=== PATIENT | female | born 1990 | race Hispanic/Latino ===

== ENCOUNTER 2024-08-02 22:00 | Emergency (ER) | payer BC ==
[~2024-08-02] VITALS: Ht 165.1 cm; Wt 86.2 kg
[2024-08-02] MEDS: 0.9%NACL 1000ML 1,000 ML IV ONE (22:24)
[2024-08-02] MEDS: morPHINE 4 MG SYG IVP ONE (22:24)
[2024-08-02] MEDS: ondanSETRON 4MG INJ IVP ONE (22:24)
--- NOTE | 2024-08-02 22:29 | ERN ---
ED Note History of Present Illness Stated Complaint: NAUSEA/VOMITING Chief Complaint: Nausea,Vomiting,Diarrhea Time Seen by MD: 22:08 Time Seen by Midlevel: 22:08 Dictation: The patient is a 33-year-old female with a history of cholecystectomy who pres ents to the emergency department with complaints of a two episodes of nonbloody vomiting, periumbilical abdominal pain onset 1 hour prior to arrival. Patient denies any diarrhea, fevers. Reports daughter with similar symptoms at home. Allergies: Coded Allergies: No Known Drug Allergies (Unverified Allergy, Unknown, 08/02/24) Home Meds Active Scripts Metoclopramide HCl (Reglan 10 mg Tab) 10 Mg Tablet, 1 TAB PO QID PRN for VOMITING for 15 Days, #120 TAB 0 Refills Prov:KENZIE HEAD [facility] 08/03/24 Ciprofloxacin HCl (Cipro) 500 Mg Tablet, 1 TAB PO BID for 10 Days, #20 TAB 0 Refills Prov:KENZIE HEAD [facility] 08/03/24 Metronidazole (Metronidazole) 500 Mg Tablet, 1 TAB PO TID for 10 Days, #30 TAB 0 Refills Prov:KENZIE HEAD [facility] 08/03/24 Past Medical History Past Medical History: No Pertinent History Surgical History: None RN Note Reviewed/Agreed w/PFSH: Yes Review of System Dictation Constitutional: Negative for fever,chills, and weight loss Eyes: Negative for injury, pain,redness, and discharge ENT: Negative for injury,pain or swelling Cardiovascular: Negative for chest pain, palpitations, and edema Respiratory: Negative for shortness of breath, cough, and wheezing, Abdomen/GI: Negative for diarrhea, and constipation. Positive for abdominal pain, nausea, vomiting Back: Negative for injury and pain : Negative for injury, bleeding and discharge MS/Extremity: Negative for injury and deformity Skin: Negative for rash, and discoloration Neuro: Negative for headache, weakness, numbness, tingling, and seizure Psych: Negative for suicide ideation, homicidal ideation, and hallucinations Initial Vital Sign VS Vital Signs Date Time Temp Pulse Resp B/P (MAP) Pulse Ox O2 Delivery O2 Flow Rate FiO2 08/02/24 22:08 98.2 89 20 142/83 99 Room Air 0 08/02/24 22:16 21 Physical Exam Dictation Vital Signs reviewed General Appearance: Alert, oriented x 3, no acute distress, well developed, nourished. Head and Face: non-traumatic. Eyes: PERRL, pink conjunctivas, eyelid no trauma, anterior chamber with arcus senilis. Ears: Pinnas intact and no signs of trauma or erythema ear canals clear and no discharge TM no erythema Nose: No discharge, no bleeding. Oropharynx: Mouth normal, tongue pink. pharynx clear,no erythema, tonsils no exudates, no abscesses noted, mucous membrane moist Neck: Supple, non-tender, no thyromegaly, no masses, no JVD, no bruits Breast:Deferred Chest:No tenderness, no crepitus, no paradoxical movement, no retractions Lungs:Clear, well-ventilated, symmetric, no rales, no wheezing, no rhonchi, no stridor, good breath sounds bilaterally Heart: Regular rate, regular rhythm, no murmur, no gallops Vascular: no peripheral edema, Abdomen: Soft, positive bowel sounds, nondistended, no guarding, Tenderness to left lower, right lower quadrant, no rebound, no masses no hepatomegaly, no splenomegaly, no Grossman's sign, no hernias. Rectal: Deferred Genital: Deferred Neurological: Normal speech, motor function intact, sensory function intact Musculoskeletal: Neck nontender, full range of motion, back nontender, full range of motion, Extremities: nontender, full range of motion Skin: Color pink, dry, no turgor, no rash, no lacerations, no abrasions, no contusions. Lymphatic: Deferred Results (Laboratory/Radiology) Laboratory/Radiology Laboratory Tests Test 08/02/24 22:41 08/03/24 01:27 08/03/24 01:36 White Blood Count 11.7 K/uL (4.8-10.8) H Red Blood Count 4.21 MIL/uL (4.00-5.50) Hemoglobin 10.7 g/dL (12.0-16.0) L Hematocrit 32.6 % (36-48) L Mean Corpuscular Volume 77.4 fL (79-99) L Mean Corpuscular Hemoglobin 25.4 pg (27.0-33.0) L Mean Corpuscular Hemoglobin Concent 32.8 g/dL (32.0-36.0) Red Cell Distribution Width 14.5 % (11.0-15.5) Platelet Count 199 K/uL (130-400) Mean Platelet Volume 11.4 fL (7.5-10.5) H Immature Granulocyte % (Auto) 0.4 % (0-1) Neutrophils (%) (Auto) 82.0 % (40.0-77.0) H Lymphocytes (%) (Auto) 10.4 % (21.0-51.0) L Monocytes (%) (Auto) 6.4 % (3.0-13.0) Eosinophils (%) (Auto) 0.5 % (0.0-8.0) Basophils (%) (Auto) 0.3 % (0.0-5.0) Neutrophils # (Auto) 9.6 K/uL (1.8-7.7) H Lymphocytes # (Auto) 1.2 K/uL (1.0-4.8) Monocytes # (Auto) 0.8 K/uL (0.1-1.0) Eosinophils # (Auto) 0.06 K/uL (0.00-0.70) Basophils # (Auto) 0.03 K/uL (0.00-0.20) Absolute Immature Granulocyte (auto 0.05 K/uL (0-1) Nucleated Red Blood Cells 0.0 % (0.0-0.19) Sodium Level 137 mmol/L (136-145) Potassium Level 2.8 mmol/L (3.5-5.1) *L 3.3 mmol/L (3.5-5.1) L Chloride Level 104 mmol/L (101-111) Carbon Dioxide Level 27 mmol/L (21-32) Blood Urea Nitrogen 12 mg/dL (7-18) Creatinine 0.5 mg/dL (0.5-1.0) Glomerular Filtration Rate Calc 125 mL/min (>90) Random Glucose 119 mg/dL (70-105) H Total Calcium 7.4 mg/dL (8.5-10.1) L Magnesium Level 1.40 mg/dL (1.80-2.40) L Total Bilirubin 1.0 mg/dL (0.2-1.0) Direct Bilirubin 0.2 mg/dL (0.0-0.3) Aspartate Amino Transf (AST/SGOT) 15 U/L (10-37) Alanine Aminotransferase (ALT/SGPT) 24 U/L (12-78) Alkaline Phosphatase 62 U/L (50-136) Total Protein 6.1 g/dL (6.0-8.3) Albumin 2.8 g/dL (3.5-5.0) L Lipase 28 U/L (16-77) Serum Test, Qualitative NEGATIVE (NEGATIVE) Urine Color LIGHT-YELLOW (YELLOW) Urine Appearance CLEAR (CLEAR) Urine pH 6.0 (5.0-8.0) Urine Specific [place] OVER (1.001-1.031) Urine Protein NEGATIVE mg/dL (NEGATIVE) Urine Glucose (UA) NEGATIVE mg/dL (NEGATIVE) Urine Ketones 40 mg/dL (NEGATIVE) H Urine Occult Blood LARGE (NEGATIVE) H Urine Nitrate NEGATIVE (NEGATIVE) Urine Bilirubin NEGATIVE mg/dL (NEGATIVE) Urine Urobilinogen 0.2 mg/dL (0.2-1.0) Urine Leukocyte Esterase NEGATIVE Chepe/uL Urine RBC 26-50 /HPF (0-1) H Urine WBC 2-5 /HPF (0-1) H Urine Bacteria RARE /HPF (None Seen) REASON: rigth and left lower abd pain ORDERING PHYSICIAN: KENZIE HEAD [employer] PROCEDURE: ABD PEL W - CT ABDOMEN/PELVIS W/CONTRAST CT ABDOMEN/PELVIS W/CONTRAST HISTORY: Lower abdominal pain COMPARISON: None TECHNIQUE: Multiple sequential axial images of the abdomen and pelvis were obtained from the dome of the diaphragm through symphysis pubis. Patient was given 100 cc of Omnipaque through intravenous route. Oral contrast was not given. FINDINGS: No pleural effusion is seen bilaterally. There is no evidence of parenchymal disease or pulmonary nodule of the visualized lower lungs. Degenerative changes of the thoracolumbar spine are present. The heart is not enlarged. Post cholecystectomy changes are seen. Liver is enlarged with fatty changes measuring 16 cm. Mild small bowel dilatation is seen with fluid-filled small bowel loops and colon suggestive of enterocolitis. Uterus is enlarged suggestive of fibroid uterus. There is intrauterine mass measuring 5 x 5.2 cm. The liver, spleen, adrenal glands and pancreas are unremarkable. There is no evidence of hydronephrosis bilaterally. No evidence of renal stone is seen. Fecal material is seen in the colon. There are normal size retroperitoneal and mesenteric lymph nodes. No ascites is seen. No CT evidence of acute appendicitis is seen. Pelvic sidewalls are symmetric bilaterally. Bladder is well distended without wall thickening. IMPRESSION: 1. Mild small bowel dilatation is seen with fluid-filled small bowel loops and colon suggestive of enterocolitis. The uterus is enlarged with intrauterine mass suspicious for fibroid uterus. CT was performed with one or more following dose reduction techniques: automated exposure control, adjustment of the mA and kv according to patient's size, or use of a iterative reconstruction technique. Labs Reviewed?: Yes ED Course ED Course Orders Procedure Category Date Status Time Cbc With Differential LAB 08/02/24 Complete 22:17 Urinalysis Profile LAB 08/02/24 Complete 22:17 0.9%Nacl 1000ml (Ns PHA 08/02/24 Complete 1000ml) 22:30 Morphine 4mg Syg PHA 08/02/24 Complete (Morphine 4mg Syg) 22:30 Ondansetron 4mg Inj PHA 08/02/24 Complete (Zofran 4mg Inj) 22:30 Lipase LAB 08/02/24 Complete 22:17 Basic Metabolic Panel LAB 08/02/24 Complete 22:17 Hepatic Function Panel LAB 08/02/24 Complete 22:17 Testing, LAB 08/02/24 Complete Serum Hcg 22:17 Magnesium LAB 08/02/24 Complete 23:06 Potassium Bicarb/Cit PHA 08/02/24 Complete Ac 25meq (K-Lyte Ta 23:30 Ct Abdomen/Pelvis CT 08/02/24 Resulted W/Contrast 23:10 Iohexol (Omnipaque) PHA 08/02/24 Complete 23:30 Magnesium 2gm Premix PHA 08/03/24 In Process 50ml (Magnesium 2gm 00:00 Potassium LAB 08/03/24 Complete 01:30 Metronidazole (Flagyl) PHA 08/03/24 Logged 02:30 Levofloxacin 750mg PHA 08/03/24 Logged Tab (Levaquin 750mg T 02:30 Potassium Chloride PHA 08/03/24 Logged 20meq Er (K-Dur/Klor- 02:30 Current Medications Medications (Trade) Dose Ordered Sig/William Route PRN Reason Start Time Stop Time Status Last Admin Dose Admin Iohexol (Omnipaque) 35,000 mg STK-MED ONCE IV 08/02/24 23:30 08/02/24 23:32 DC Levofloxacin (LEvaquIN 750MG TAB) 750 mg ONCE PO 08/03/24 02:30 08/13/24 02:29 UNV Magnesium Sulfate 50 ml @ 0 mls/hr PROTOCOL IV 08/03/24 00:00 09/02/24 00:00 08/03/24 00:12 Metronidazole (flaGYL) 500 mg ONCE PO 08/03/24 02:30 08/13/24 02:29 UNV Morphine Sulfate (morPHINE 4MG SYG) 4 mg ONCE ONCE IVP 08/02/24 22:30 08/02/24 22:31 DC 08/02/24 22:24 Ondansetron HCl (zoFRAN 4MG INJ) 4 mg ONCE ONCE IVP 08/02/24 22:30 08/02/24 22:31 DC 08/02/24 22:24 Potassium Bicarbonate (K-Lyte Tablet Eff 25 Meq Tablet.eff) 50 meq ONCE ONCE PO 08/02/24 23:30 08/02/24 23:31 DC 08/02/24 23:16 Potassium Chloride (K-Dur/Klor-Con 20meq) 20 meq ONCE ONCE PO 08/03/24 02:30 08/03/24 02:31 UNV Sodium Chloride 1,000 ml @ 0 mls/hr ONCE ONCE IV 08/02/24 22:30 08/02/24 22:31 DC 08/02/24 22:24 Vital Signs Date Time Temp Pulse Resp B/P (MAP) Pulse Ox O2 Delivery O2 Flow Rate FiO2 08/03/24 01:10 75 17 112/65 99 Room Air* 0 21 08/03/24 00:00 75 16 118/60 100 Room Air* 0 21 08/02/24 22:16 88 19 138/86 100 Room Air* 0 21 08/02/24 22:08 98.2 89 20 142/83 99 Room Air 0 Medical Decision Making MDM The patient is a 33-year-old female with a history of cholecystectomy who presents to the emergency department with complaints of a two episodes of nonbloody vomiting, periumbilical abdominal pain onset 1 hour prior to arrival. Patient denies any diarrhea, fevers. Reports daughter with similar symptoms at home. CBC showed mild leukocytosis, macrocytic anemia, chemistry showed hypokalemia and hypomagnesemia, was replaced in the ED with improvement. CT abdomen showed enterocolitis. Patient tolerated p.o. fluids, no longer vomiting. Instructed to follow up with PCP. Differential diagnosis: Electrolyte imbalance, appendicitis, diverticulitis, gastroenteritis, dehydration Need for hospitalization: Patient does not meet criteria for hospitalization. There are no social concerns with this patient. DX & DISP Disposition: Discharge Departure Impression: Primary Impression: Enterocolitis Additional Impressions: Hypokalemia, Leukocytosis, Anemia, Hypomagnesemia, Abdominal pain Condition: Stable Scripts Levofloxacin (Levaquin 750Mg Tabs) 750 Mg Tablet 750 MG PO DAILY for 9 Days, #10 TAB 0 Refills Prov: KENZIE HEAD 08/03/24 Metoclopramide HCl (Reglan 10 mg Tab) 10 Mg Tablet 1 TAB PO QID PRN for VOMITING for 15 Days, #120 TAB 0 Refills Prov: KENZIE HEAD 08/03/24 Metronidazole (Metronidazole) 500 Mg Tablet 1 TAB PO TID for 10 Days, #30 TAB 0 Refills Prov: KENZIE HEAD 08/03/24 Additional Instructions: Please follow up with PCP in 1-2 days. Continue oral hydration at home. If symptoms worsen please return to ED . FOLLOW-UP WITH PRIMARY CARE PROVIDER IN 1 TO 2 DAYS. TAKE MEDICATIONS DIRECTED HERE IN THE EMERGENCY ROOM. OKAY TO CONTINUE HOME MEDICATIONS UNLESS OTHERWISE DISCUSSED DURING YOUR VISIT IN THE EMERGENCY ROOM TODAY. RETURN TO YOUR NEAREST EMERGENCY ROOM IF SYMPTOMS WORSEN OR IF THERE IS NO IMPROVEMENT. CALL 911 IF YOU NEED IMMEDIATE ASSISTANCE. TAKE TYLENOL OR MOTRIN [id number] NEEDED AND IF NO CONTRAINDICATIONS ARE PRESENT. INCREASE OR AL HYDRATION. A WOUND CULTURE OR URINE CULTURE WAS ORDERED HERE IN THE EMERGENCY ROOM DEPARTMENT PLEASE FOLLOW-UP WITH PRIMARY CARE PROVIDER AND ADVISE THEM TO GET REPEAT PORTS FROM OUR FACILITY. IF YOU HAD ANY ANETTE WRAP/SPLINTS THAT WERE APPLIED HERE, PLEASE DO NOT REMOVE THEM UNTIL YOU SEE YOUR PRIMARY CARE OR SPECIALTY. Time of Disposition: 02:15 I have reviewed the case, and I agree with, Diagnosis and Plan KENZIE HEAD Aug 02, 2024 22:29
[2024-08-02 22:48] LABS: BASOPHILS # (AUTO) 0.03 K/uL (0.00-0.20); BASOPHILS % (AUTO) 0.3 % (0.0-5.0); EOSINOPHILS # (AUTO) 0.06 K/uL (0.00-0.70); EOSINOPHILS % (AUTO) 0.5 % (0.0-8.0); HEMATOCRIT 32.6 % (36-48); IMMATURE GRANULOCYTE ABSOLUTE 0.05 K/uL (0-1); LYMPHOCYTES # (AUTO) 1.2 K/uL (1.0-4.8); LYMPHOCYTES % (AUTO) 10.4 % (21.0-51.0); MEAN CORPUSCULAR HEMOGLOBIN 25.4 pg (27.0-33.0); MEAN CORPUSCULAR HGB CONC 32.8 g/dL (32.0-36.0); MEAN CORPUSCULAR VOLUME 77.4 fL (79-99); MONOCYTES # (AUTO) 0.8 K/uL (0.1-1.0); MONOCYTES % (AUTO) 6.4 % (3.0-13.0); NEUTROPHILS # (AUTO) 9.6 K/uL (1.8-7.7); PLATELET COUNT (AUTO) 199 K/uL (130-400); RED BLOOD CELL COUNT(AUTO) 4.21 MIL/uL (4.00-5.50); RED CELL DISTRIBUTION WIDTH 14.5 % (11.0-15.5); WHITE BLOOD COUNT (AUTO) 11.7 K/uL (4.8-10.8)
[2024-08-02 23:03] LABS: ALBUMIN 2.8 g/dL (3.5-5.0); BILIRUBIN,DIRECT 0.2 mg/dL (0.0-0.3); CREATININE 0.5 mg/dL (0.5-1.0); TOTAL PROTEIN, SERUM 6.1 g/dL (6.0-8.3)
[2024-08-02 23:04] LABS: POTASSIUM 2.8 mmol/L (3.5-5.1)
[2024-08-02] MEDS: PoTASSium BIcarbonate/CIT AC 25 MEQ TABLET.EFF PO ONE (23:16)
[2024-08-02] MEDS ORDERED: IOHEXOL 350 MG/ML 100ML INFUS..BTL IV ONE (23:30)
--- NOTE | 2024-08-03 00:11 | HMCIMG ---
CT ABDOMEN/PELVIS W/CONTRAST HISTORY: Lower abdominal pain COMPARISON: None TECHNIQUE: Multiple sequential axial images of the abdomen and pelvis were obtained from the dome of the diaphragm through symphysis pubis. Patient was given 100 cc of Omnipaque through intravenous route. Oral contrast was not given. FINDINGS: No pleural effusion is seen bilaterally. There is no evidence of parenchymal disease or pulmonary nodule of the visualized lower lungs. Degenerative changes of the thoracolumbar spine are present. The heart is not enlarged. Post cholecystectomy changes are seen. Liver is enlarged with fatty changes measuring 16 cm. Mild small bowel dilatation is seen with fluid-filled small bowel loops and colon suggestive of enterocolitis. Uterus is enlarged suggestive of fibroid uterus. There is intrauterine mass measuring 5 x 5.2 cm. The liver, spleen, adrenal glands and pancreas are unremarkable. There is no evidence of hydronephrosis bilaterally. No evidence of renal stone is seen. Fecal material is seen in the colon. There are normal size retroperitoneal and mesenteric lymph nodes. No ascites is seen. No CT evidence of acute appendicitis is seen. Pelvic sidewalls are symmetric bilaterally. Bladder is well distended without wall thickening. IMPRESSION: 1. Mild small bowel dilatation is seen with fluid-filled small bowel loops and colon suggestive of enterocolitis. The uterus is enlarged with intrauterine mass suspicious for fibroid uterus. CT was performed with one or more following dose reduction techniques: automated exposure control, adjustment of the mA and kv according to patient's size, or use of a iterative reconstruction technique.
[2024-08-03] MEDS: MAGNESIUM 2GM PREMIX 50ML 50 ML IV SCH (00:12)
[2024-08-03] MEDS ORDERED: METO10TA41 PO (01:40)
[2024-08-03] MEDS ORDERED: METR-172 PO (01:40)
[2024-08-03] MEDS ORDERED: CIPR-278 PO (01:40)
[2024-08-03 02:07] LABS: APPEARANCE,URINE CLEAR (CLEAR); BILIRUBIN,URINE NEGATIVE (NEGATIVE); COLOR,URINE LIGHT-YELLOW (YELLOW); GLUCOSE, URINE (UA) NEGATIVE (NEGATIVE); KETONES,URINE 40 mg/dL (NEGATIVE); LEUKOCYTE ESTERASE ,URINE NEGATIVE Leu/uL (NEGATIVE); NITRATE,URINE NEGATIVE (NEGATIVE); OCCULT BLOOD,URINE LARGE (NEGATIVE); PROTEIN,URINE NEGATIVE (NEGATIVE); UROBILINOGEN,URINE 0.2 mg/dL (0.2-1.0)
[2024-08-03 02:09] LABS: ADD UA MICROSCOPIC YES
[2024-08-03 02:10] LABS: BACTERIA,URINE RARE /HPF (None Seen); MUCUS,URINE RARE LPF (None Seen); RBC,URINE 26-50 /HPF (0-1)
[2024-08-03] MEDS ORDERED: LEVO750T68 PO (02:14)
[2024-08-03] MEDS: PoTASSium chloRIDE 20MEQ ER 20 MEQ ERTAB PO ONE (02:21)
[2024-08-03] MEDS: levoFLOXacin 750 MG TABLET PO ONE (02:21)
[2024-08-03] MEDS: metRONIDazole 500 MG TABLET PO ONE (02:21)
[2024-08-03 02:29] VITALS: BP 110/56; PULSE 64; RESP 17; TEMP 98.2; O2SAT 98
== END 2024-08-03 02:37 | disposition home or self-care (01) ==
LOC: EDH 22:00
DX: K52.9 Noninfective gastroenteritis and colitis, unspecified (principal); D64.9 Anemia, unspecified; E83.42 Hypomagnesemia; E87.6 Hypokalemia; Z79.899 Other long term (current) drug therapy
CPT/HCPCS: 99284 ×2; 74177; 96374 ×2; 96375 ×3; 80076; 83735; 80048; 84703; 83690; 85025; 81001; 36415 ×2; 84132; J7030; J2405 ×2; J2270; Q9967; J3475; J7120 ×2; J2543